=== PATIENT | male | born 1970 | race Caucasian/White ===

== ENCOUNTER 2019-06-09 17:43 | Emergency (ER) | payer MEDICARE, MEDICAID ==
[~2019-06-09] VITALS: Ht 162.6 cm; Wt 26.4 kg
--- NOTE | 2019-06-09 19:00 | NUR ---
updated poc with caretacker at the bedside, attentive . pt stable no acute distress .
--- NOTE | 2019-06-09 20:33 | NUR ---
us sound to marino pt
[2019-06-09 21:37] VITALS: BP 100/58
== END 2019-06-09 21:35 | disposition home or self-care (01) ==
LOC: ER 17:44
DX: M79.605 Pain in left leg (principal); Q90.9 Down syndrome, unspecified; Z91.018 Allergy to other foods
CPT/HCPCS: 93971; 99284

== ENCOUNTER 2022-05-29 09:16 | Emergency (ER) | payer MEDICARE, MEDICAID ==
[~2022-05-29] VITALS: Ht 162.6 cm; Wt 65.0 kg
[2022-05-29 10:59] LABS: BASOPHILS % (AUTO) 1.5 % (0-1); EOSINOPHILS % (AUTO) 1.7 % (0-6); HEMATOCRIT 43.6 % (42.0-52.0); HEMOGLOBIN 14.6 g/dl (14.0-17.9); MEAN CORPUSCULAR HEMOGLOBIN 32.8 PG (27.0-31.0); MEAN CORPUSCULAR HGB CONC 33.5 g/dL (33.0-36.5); MEAN CORPUSCULAR VOLUME 97.9 FL (78-98); MONOCYTES # (AUTO) 0.4 X10'3 (0-0.9); MONOCYTES % (AUTO) 12.3 % (2-12); NEUTROPHILS # (AUTO) 1.4 X10'3 (1.8-7.7); NEUTROPHILS % (AUTO) 48.5 % (42-75); PLATELET COUNT 193 X10'3 (140-440); RED BLOOD COUNT 4.45 X10'6 (4.70-6.10); RED CELL DISTRIBUTION WIDTH 14.8 % (11.5-14.5); WHITE BLOOD COUNT 2.8 X10'3 (4.5-11.0)
[2022-05-29 11:12] LABS: ALANINE AMINOTRANSFERASE 19 U/L (12-78); ALBUMIN 3.5 G/DL (3.4-5.0); ALBUMIN/GLOBULIN RATIO 0.8 (1.1-1.5); ALKALINE PHOSPHATASE 95 IU/L (46-116); ANION GAP 7 (8-16); ASPARTATE AMINO TRANSFERASE 24 U/L (10-37); BILIRUBIN,TOTAL 0.5 MG/DL (0.1-1.0); BLOOD UREA NITROGEN 22 MG/DL (7-18); BUN/CREATININE RATIO 18.6 (5.4-32.0); CALCIUM 8.8 MG/DL (8.5-10.1); CHLORIDE 105 MMOL/L (99-107); CREATININE 1.18 MG/DL (0.60-1.10); GLUCOSE 103 MG/DL (70-104); SODIUM 140 MMOL/L (135-145); TOTAL CARBON DIOXIDE 28.2 MMOL/L (24-32); TOTAL PROTEIN 7.8 G/DL (6.4-8.2); eGFR 65 ML/MIN
[2022-05-29 11:45] LABS: PLATELET ESTIMATE NORMAL; TOTAL CELLS COUNTED 100
[2022-05-29 12:34] VITALS: BP 127/105
[2022-05-29 13:11] LABS: CLARITY,URINE CLEAR (Clear); COLOR,URINE YELLOW (Yellow); GLUCOSE, URINE NEGATIVE (Neg); KETONES,URINE NEGATIVE (Neg); LEUKOCYTE ESTERASE ,URINE NEGATIVE (Neg); NITRITES, URINE NEGATIVE (Neg); OCCULT BLOOD,URINE NEGATIVE (Neg); PROTEIN,URINE NEGATIVE (Neg); UROBILINOGEN,URINE 0.2 E.U/dL (0.2-1.0)
[2022-05-29 13:14] LABS: UA COLLECTION TYPE VOIDED
== END 2022-05-29 13:35 | disposition home or self-care (01) ==
LOC: ER 09:17
DX: Z04.3 Encounter for examination and observation following other accident (principal); Z91.018 Allergy to other foods
CPT/HCPCS: 80053; 81003; 85007; 85025; 99284

== ENCOUNTER 2025-05-04 17:17 | Emergency (ER) | payer MEDICARE, MEDICAID ==
[~2025-05-04] VITALS: Ht 154.9 cm; Wt 59.1 kg
[~2025-05-04 17:17] MED LIST: AMOX-580 PO; LEVO100T9 PO; TOPI-95 PO
--- NOTE | 2025-05-04 18:04 | Physician Documentation ---
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 Patient's cloth shrinking supervisor reports that a chest x-ray was done at the facility that sent the patient to the emergency department that showed possible pneumonia. Patient's cloth shrinking supervisor also reports increase in productive cough over the last week. Medication Reconciliation Allergies: Coded Allergies: orange juice (Verified Allergy, Unknown, 05/04/25) tomato (Verified Allergy, Unknown, 05/04/25) Scheduled Amox Tr/Potassium Clavulanate 875/125 MG (Augmentin 875/125 MG), 1 TAB PO BID@0830,1730 Levothyroxine Sodium (Levothyroxine Sodium), 1 TAB PO DAILY, (Reported) Topiramate (Topiramate), 1 TAB PO BID, (Reported) Past Medical History Patient History: Patient reports no known family medical history. Review of Systems All Other Systems at this time: Reviewed and Negative ROS As stated above in the HPI, otherwise all systems are reviewed and negative. Physical Exam Vital Signs: Temperature: 98.4, Source: Temporal, Heart Rate: 94, Respiratory Rate: 16, BP: 107/79, Pulse Oximetry: 98, Weight: 59.090 Oxygen Flow Rate: 0 Physical Exam General: Alert, no apparent distress. Respiratory: Crackles at bases Chest: No accessory muscle use. Cardiovascular: Regular rate and rhythm, no murmurs. Psychiatric: Normal mood and affect. Skin: Normal color, warm and dry. No edema, no ecchymosis. Progress Results/Orders Results/Orders Orders - YARED JUAREZ [employer]ECTIVE [employer] SECTION Ceftriaxone Im Kit W/Lidocaine (Rocephin (05/04/25 23:20) Vital Signs 05/04/25 05/04/25 17:50 23:00 Temp 98.4 Pulse 94 Resp 16 16 B/P (MAP) 107/79 Pulse Ox 98 O2 Flow Rate 0 Laboratory Tests Test 05/04/25 18:12 White Blood Count 4.8 Red Blood Count 4.07 L Hemoglobin 12.6 L Hematocrit 38.3 L Mean Corpuscular Volume 94.1 Mean Corpuscular Hemoglobin 30.9 Mean Corpuscular Hemoglobin Concent 32.8 L Red Cell Distribution Width 17.0 H Platelet Count 321 Mean Platelet Volume 7.3 L Neutrophils (%) (Auto) 50.4 Lymphocytes (%) (Auto) 37.1 Monocytes (%) (Auto) 9.9 Eosinophils (%) (Auto) 1.5 Basophils (%) (Auto) 1.1 H Neutrophils # (Auto) 2.4 Lymphocytes # (Auto) 1.8 Monocytes # (Auto) 0.5 Eosinophils # (Auto) 0.1 Basophils # (Auto) 0.1 CBC Comment Sodium Level 138 Potassium Level 3.8 Chloride Level 105 Carbon Dioxide Level 30.4 Anion Gap 3 L Blood Urea Nitrogen 29 H Creatinine 1.22 H Estimated GFR/1.73 m2 62 BUN/Creatinine Ratio 23.8 H Glucose Level 87 Lactic Acid Level 0.9 Calcium Level 8.6 Pro-B-Type Natriuretic Peptide 117 Albumin 3.0 L Chemistry Comments Microbiology Date/Time Source Procedure Growth Status 05/04/25 18:17 Blood Arm Left Blood Culture - Preliminary NEGATIVE (LESS THAN 24 HOURS) Resulted Medical Decision Making Findings Patient's x-ray indicates suspected community-acquired pneumonia. Going to treat him with antibiotics started him on ceftriaxone with a IM shot here in the ED and I am going to continue his medication regimen with the Augmentin Differential Dx:Considerations: Include: Allergic rhinitis, Influenza, Otitis media, Peritonsillar abscess, Pharyngitis-Diphtheria, Pharyngitis-Streptoccal, Pharyngitis-Viral, Pneumonia, Pnuemonitis, Sinusitis, URI, Other Departure Disposition: 01 HOME / SELF CARE / HOMELESS Impression: Primary Impression: Pneumonia Condition: Stable Discharge Instructions: Community-Acquired Pneumonia, Adult, [id number] Referrals: NO PRIMARY CARE PROVIDER (PCP) Prescriptions Amox Tr/Potassium Clavulanate 875/125 MG (Augmentin 875/125 MG) 875 Mg-125 Mg Tablet 1 TAB PO BID@0830,1730 for 7 Days, #14 TAB Prov: YARED JUAREZ NP 05/04/25 Signature Scribe Signature: g Attestation: Scribed for Yared Juarez Hydrologic Modeler by Yared Juarez - LATHA . 05/04/25 23:07 GERMAINE CHEN ANALYSIS MANAGER May 04, 2025 18:04 YARED JUAREZ NP May 04, 2025 23:13
[2025-05-04 18:28] LABS: MEAN PLATELET VOLUME 7.3 FL (7.4-10.4); RED CELL DISTRIBUTION WIDTH 17.0 % (11.5-14.5)
[2025-05-04 18:59] LABS: CREATININE 1.22 MG/DL (0.60-1.10); PRO BRAIN NATRIURETIC PEPTIDE 117 PG/ML (0-125); TOTAL CARBON DIOXIDE 30.4 MMOL/L (24-32); eCRCL 51 ML/MIN; eGFR 62 ML/MIN
[2025-05-04] MEDS ORDERED: mag hydrox/Alum hydrox/simeth 30ml oral suspension PO ONE (22:50)
[2025-05-04] MEDS ORDERED: LIDOcaine 2% Viscous 15ml cup MM PRN (22:50)
[2025-05-04] MEDS ORDERED: hydrALAZINE 20mg/ml inj. IV ONE (22:50)
[2025-05-04 23:16] VITALS: BP 110/58; PULSE 85; RESP 16; TEMP 97.6; O2SAT 94
[2025-05-04] MEDS ORDERED: AMOX-580 PO (23:21)
--- NOTE | 2025-05-04 23:26 | RADIOLOGY REPORT ---
CHEST RADIOGRAPH REASON FOR EXAM: COUGH COMPARISON: CT CT CHEST on DOS: 03/25/25, DI CHEST,SINGLE VIEW on DOS: 03/25/25 TECHNIQUE: One view of the chest is provided FINDINGS: The cardiomediastinal silhouette is enlarged. There is patchy bilateral airspace disease, g reatest in the left middle and lower lung zones and the right lower lung zone. There is no significa nt pleural effusion. There is no pneumothorax. No acute osseous abnormality is identified. There is a large hiatal hernia. IMPRESSION: Bilateral airspace disease consistent with multifocal pneumonia. This is not significantly changed. Large hiatal hernia.
[2025-05-04] MEDS: CefTRIAXone 1000mg IM Kit (w/lidocaine diluent) IM ONE (23:30)
== END 2025-05-04 23:38 | disposition home or self-care (01) ==
LOC: ER 17:18
DX: J18.9 Pneumonia, unspecified organism (principal); R06.02 Shortness of breath; Z91.018 Allergy to other foods
CPT/HCPCS: 36415; 71045; 80048; 83605; 83880; 85025; 87040; 96372; 99284; J0696

== ENCOUNTER 2025-07-12 14:58 | Outpatient (CLI) | payer MEDICARE, MEDICAID ==
--- NOTE | 2025-07-12 16:31 | RADIOLOGY REPORT ---
EXAM: CT CT CHEST INDICATION: PNEUMONIA,UNSPECIFIED ORGANISM TECHNIQUE: Noncontrast axial images of the chest have been obtained along with coronal and sagittal reformatted images. All CT scans at this facility use dose modulation, iterative reconstruction, and/or weight based dosing when appropriate to reduce radiation dose to as low as reasonably achievable. COMPARISON: DI CHEST,SINGLE VIEW on DOS: 05/04/25 FINDINGS: LOWER NECK: Unremarkable LYMPH NODES/MEDIASTINUM: No abnormal lymph nodes by CT size criteria CARDIOVASCULAR: Normal cardiac size. No pericardial effusion. No aneurysmal dilatation of the great vessels. Coronary artery calcifications. UPPER ABDOMEN: Gastrostomy tube in place sliding hiatal hernia significant herniation of bowel loops into the left lower hemithorax versus posterior mediastinum MUSCULOSKELETAL: No acute fracture or aggressive focal osseous lesion. Multilevel degenerative change of the visualized spine. CHEST WALL: Minimal body wall edema LUNG PARENCHYMA/PLEURAL SPACE: No pleural effusion or pneumothorax. Upon comparison with the prior examination, decreased areas of patchy ground-glass with previously identified consolidative appearance and imaging findings compatible with improvement when compared to prior examination. No interval bro nchiectasis pneumatocele in the left lower lobe and right middle lobe. IMPRESSION: 1. Improvement since prior examination however persistent areas of alveolar opacification.
== END 2025-07-12 23:59 | disposition home or self-care (01) ==
LOC: RAD 14:58
PROVIDERS: ATTEND Student in an Organized Health Care Education/Training Program
DX: J18.9 Pneumonia, unspecified organism (principal); I25.10 Atherosclerotic heart disease of native coronary artery without angina pectoris; K44.9 Diaphragmatic hernia without obstruction or gangrene; M47.814 Spondylosis without myelopathy or radiculopathy, thoracic region; Z93.1 Gastrostomy status
CPT/HCPCS: 71250